=== PATIENT | male | born 1990 | race African-American/Black ===

== ENCOUNTER 2022-11-03 09:29 | Emergency (ER) | payer MEDICAID ==
[~2022-11-03] VITALS: Ht 170.2 cm; Wt 64.0 kg
[2022-11-03 09:41] VITALS: BP 157/68
[2022-11-03 14:37] LABS: CLARITY URINE TURBID (CLEAR); COLOR URINE YELLOW (YELLOW); KETONES URINE 1+ (NEGATIVE); LEUKOCYTE ESTERASE URINE NEGATIVE (NEGATIVE); NITRITE URINE NEGATIVE (NEGATIVE); OCCULT BLOOD URINE NEGATIVE (NEGATIVE); PH URINE 7.5 (4.5-8.0); PROTEIN URINE NEGATIVE (NEGATIVE); SPECIFIC GRAVITY URINE 1.025 (1.005-1.030)
[2022-11-03] MEDS ORDERED: NITR-87 MT (15:00)
[2022-11-06 05:12] LABS: NEISSERIA GONORRHOEAE NAA Negative (Negative)
== END 2022-11-03 15:48 | disposition home or self-care (01) ==
LOC: ER 09:29
DX: R30.0 Dysuria (principal)
CPT/HCPCS: 81003; 87491; 87591; 99283